=== PATIENT | female | born 1945 | race Caucasian/White ===

== ENCOUNTER → 2018-04-29 | Outpatient (CLI) | payer MEDICARE, OTHER ==
[2018-04-29 11:28] LABS: BLOOD UREA NITROGEN 19 mg/dl (7-20)
== END | disposition home or self-care (01) ==
LOC: LAB 10:39
DX: M54.5 Low back pain (principal)
CPT/HCPCS: 82565; 84520

== ENCOUNTER 2018-11-14 06:19 | Inpatient (IN) | payer MEDICARE, OTHER ==
[2018-11-14] MEDS: CEFAZOLIN 2 GM/50 ML (PMX) 50 ML IVPB (06:00)
[~2018-11-14 06:19] MED LIST: LACTATED RINGER'S 1,000 ML IV*
[2018-11-14] MEDS ORDERED: AL HYDROX/MG HYDROX/SIMETH 30 ML CUP PO (07:00)
[2018-11-14] MEDS ORDERED: BISACODYL 10 MG SUPP PR (07:00)
[2018-11-14] MEDS ORDERED: DIPHENHYDRAMINE 50 MG INJ IV ×2 (07:00→09:00)
[2018-11-14] MEDS ORDERED: traMADol 50 MG TAB PO (07:00)
[2018-11-14] MEDS ORDERED: HYDROmorphONE 0.5 MG/0.5 ML SYG IV (07:00)
[2018-11-14] MEDS ORDERED: ACETAMINOPHEN 325 MG TAB PO (07:00)
[2018-11-14] MEDS ORDERED: SEVOFLURANE 15 MIN (07:00)
[2018-11-14] MEDS ORDERED: GLYCOPYRROLATE 0.4 MG INJ (07:00)
[2018-11-14] MEDS ORDERED: NEOSTIGMINE 3 MG/3 ML SYRINGE (07:00)
[2018-11-14] MEDS ORDERED: ONDANSETRON 4 MG INJ IV ×2 (07:00→09:00)
[2018-11-14] MEDS ORDERED: NALOXONE (0.4 MG/ML) INJ IV (07:00)
[2018-11-14] MEDS ORDERED: ROCURONIUM 50 MG INJ (07:43)
[2018-11-14] MEDS ORDERED: CEFAZOLIN 1 GM INJ (07:43)
[2018-11-14] MEDS ORDERED: PROPOFOL 20 ML (07:43)
[2018-11-14] MEDS ORDERED: MIDAZOLAM 1 MG/ML 2 ML INJ (07:44)
[2018-11-14] MEDS: CEFAZOLIN 1 GM/50 ML (PMX) 50 ML IVPB ×3 (08:00→23:48)
[2018-11-14] MEDS ORDERED: FAMOTIDINE 20 MG INJ (08:13)
[2018-11-14] MEDS ORDERED: ONDANSETRON 4 MG INJ (08:13)
[2018-11-14] MEDS ORDERED: METOCLOPRAMIDE 10 MG INJ (08:13)
[2018-11-14] MEDS ORDERED: DEXAMETHASONE 4 MG/ML 1 ML INJ (08:13)
[2018-11-14] MEDS: BUPIVACAINE 0.25%/EPI (SDV) 10 ML INJ (08:30)
[2018-11-14] MEDS ORDERED: LABETALOL HCL 20MG INJ (08:36)
[2018-11-14] MEDS: DOCUSATE SODIUM 100 MG CAP PO ×2 (09:00→20:11)
[2018-11-14] MEDS ORDERED: METOCLOPRAMIDE 10 MG INJ IV (09:00)
[2018-11-14] MEDS ORDERED: MEPERIDINE 25 MG INJ IV (09:00)
[2018-11-14] MEDS ORDERED: FENTAnyl 50 MCG/ML VIAL IV ×3 (09:00)
[2018-11-14] MEDS ORDERED: HYDROmorphONE 1 MG/5 ML IV SYRINGE IV ×2 (09:00)
[2018-11-14] MEDS ORDERED: IPRATROPIUM (NEB) 0.5 MG/2.5 ML AMP HHN (09:00)
[2018-11-14] MEDS ORDERED: LABETALOL HCL 20MG INJ IV (09:00)
[2018-11-14] MEDS ORDERED: ALBUTEROL 0.083% (NEB) 2.5 MG/3 ML AMP HHN (09:00)
[2018-11-14] MEDS ORDERED: EPHEDrine SULFATE 50 MG/5 ML SYG IV (09:00)
[2018-11-14] MEDS: SURGIFOAM POWDER 1 GM KIT (09:10)
[2018-11-14] MEDS: GELATIN SIZE 100 SPONGE (09:13)
[2018-11-14] MEDS: POLYMYXIN/BACITRACIN 1L IRRIG (09:13)
[2018-11-14] MEDS: THROMBIN 5000 UNIT VIAL (09:13)
[2018-11-14] MEDS ORDERED: LIDOCAINE 2% JELLY 5 ML (11:21)
[2018-11-14] MEDS: hydrALAzine 20 MG INJ IV (11:47)
[2018-11-14] MEDS: HYDROmorphONE 1 MG/5 ML IV SYRINGE IV (11:47)
[2018-11-14] MEDS: HYDROmorphONE 0.2 MG/ML PCA IV (12:19)
[2018-11-14] MEDS: D5W-0.45 NACL + KCL 20 MEQ 1,000 ML IV ×2 (14:34→16:59)
[2018-11-14] MEDS: ATORVASTATIN 40 MG TAB PO (20:11)
[2018-11-14] MEDS: DIPHENHYDRAMINE 25 MG CAP PO (21:30)
[2018-11-14] MEDS: CYCLOBENZAPRINE 10 MG TAB PO (23:49)
[2018-11-15] MEDS: D5W-0.45 NACL + KCL 20 MEQ 1,000 ML IV (02:49)
[2018-11-15] MEDS: CEPASTAT LOZENGE MT (03:49)
[2018-11-15 05:09] LABS: ADD MAN DIFF? NO
[2018-11-15 05:20] LABS: WHITE BLOOD COUNT 17.7 10^3/ul (4.8-10.8)
[2018-11-15 05:20] LABS: ABNORMAL IP MESSAGE 1; BASOPHILS % 0.1 % (0.0-2.0); HEMATOCRIT 34.8 % (37.0-47.0); HEMOGLOBIN 11.5 g/dl (12.0-16.0); LYMPHOCYTES # 1.2 10^3/ul (0.8-2.9); LYMPHOCYTES % 6.7 % (15.0-51.0); MEAN CORPUSCULAR HEMOGLOBIN 31.2 pg (29.0-33.0); MEAN CORPUSCULAR VOLUME 94.3 fl (82.0-101.0); MEAN PLATELET VOLUME 11.8 fl (7.4-10.4); MONOCYTE # 1.6 10^3/ul (0.3-0.9); MONOCYTES % 9.2 % (0.0-11.0); NEUTROPHIL # 14.7 10^3/ul (1.6-7.5); NEUTROPHILS % 83.4 % (39.0-77.0); PLATELET COUNT 245 10^3/UL (140-415); RED BLOOD COUNT 3.69 10^6/ul (4.20-5.40); RED CELL DISTRIBUTION WIDTH 13.1 % (11.5-14.5)
[2018-11-15 05:32] LABS: POSITIVE DIFF @See below
[2018-11-15 05:33] LABS: ANION GAP 10 (5-13); BLOOD UREA NITROGEN 15 mg/dl (7-20); CALCIUM 8.7 mg/dl (8.4-10.2); CARBON DIOXIDE 27 mmol/L (21-31); CHLORIDE 99 mmol/L (97-110); CREATININE 0.63 mg/dl (0.44-1.00); GLUCOSE 144 mg/dl (70-220); MAGNESIUM 1.9 mg/dl (1.7-2.5); POTASSIUM 4.7 mmol/L (3.5-5.1); SODIUM 136 mmol/L (135-144)
[2018-11-15] MEDS: LEVOTHYROXINE 125 MCG TAB PO (06:06)
[2018-11-15] MEDS: PANTOPRAZOLE 40 MG INJ IV (06:07)
[2018-11-15] MEDS: CEFAZOLIN 1 GM/50 ML (PMX) 50 ML IVPB (08:18)
[2018-11-15] MEDS ORDERED: ALBUTEROL HFA 8 GM INHALER INH (08:30)
[2018-11-15] MEDS: DOCUSATE SODIUM 100 MG CAP PO (09:54)
[2018-11-15] MEDS: traMADol 50 MG TAB PO ×2 (10:41→15:29)
[2018-11-16] MEDS ORDERED: PANTOPRAZOLE (EC) 40 MG TAB PO (06:00)
== END 2018-11-15 16:45 | disposition home or self-care (01) | DRG 473 ==
LOC: REC 06:19 → MS1 12:37
PROC: 0RT30ZZ Resection of Cervical Vertebral Disc, Open Approach (ICD-10-PCS; principal; 2018-11-14 07:30)
PROC: 0RG2070 Fusion of 2 or more Cervical Vertebral Joints with Autologous Tissue Substitute, Anterior Approach, Anterior Column, Open Approach (ICD-10-PCS; 2018-11-14 07:30)
PROC: 0RG20A0 Fusion of 2 or more Cervical Vertebral Joints with Interbody Fusion Device, Anterior Approach, Anterior Column, Open Approach (ICD-10-PCS; 2018-11-14 07:30)
PROC: XNS New Technology, Bones, Reposition (ICD-10-PCS; 2018-11-14 07:30)
PROC: 4A11X4G Monitoring of Peripheral Nervous Electrical Activity, Intraoperative, External Approach (ICD-10-PCS; 2018-11-14 07:30)
PROC: 4A1104G Monitoring of Peripheral Nervous Electrical Activity, Intraoperative, Open Approach (ICD-10-PCS; 2018-11-14 07:30)
DX: M50.123 Cervical disc disorder at C6-C7 level with radiculopathy (principal); E78.5 Hyperlipidemia, unspecified; E03.9 Hypothyroidism, unspecified; J45.909 Unspecified asthma, uncomplicated
CPT/HCPCS: 72050; 80048; 83735; 85025; 87086; 88304; 97116; 97161; 97530